=== PATIENT | female | born 1980 | race Caucasian/White ===

== ENCOUNTER 2024-01-25 21:58 | Emergency (ER) | payer OTHER, SELFPAY ==
[2024-01-25 21:59] VITALS: BP 145/87; PULSE 101; RESP 16; TEMP 36.6; O2SAT 99; BMI 26.4
--- NOTE | 2024-01-25 22:35 | EX.ED.DYSGE1 ---
HPI History of Present Illness Chief Complaint: Rash Informant: patient and spouse/S.O. Narrative Narrative: Patient is a 43-year-old female with past medical history of anxiety and depression. She states she is on Wellbutrin and Lexapro secondary to this and was started on Lamictal in the last 10 to 14 days. She reports today she was working in the basement vacuuming and could have been exposed to dust or mold. She states that she then noticed a full-body rash and states she had a low-grade temperature of 100 which she took 2 ibuprofen for this morning. She states her slight cough associated with this but otherwise denies congestion sore throat nausea vomiting or difficulty breathing. She states she is unsure if this is an allergic reaction or potential infection and secondary to his comes in for evaluation. [facility] Medical History [place] Allergy/AdvReac Type Severity Reaction Status Date / Time No Known Allergies Allergy Verified 01/25/24 22:00 Social History Smoking Status: Former smoker ROS ROS ED Constitutional Constitutional ED: Denies chills or fever(s) Eyes Eyes: Denies blurry vision or change in vision ENT ENT ED: Denies rhinorrhea or sore throat Cardiovascular Cardiovascular: Denies chest pain Respiratory/Chest Respiratory/Chest: Reports cough; Denies dyspnea Gastrointestinal Gastrointestinal: Denies abdominal pain, diarrhea, nausea or vomiting Genitourinary Genitourinary ED: Denies dysuria Musculoskeletal Musculoskeletal: Denies myalgias Integumentary Reports rash Neurologic Neurologic: Denies headache(s) Psychiatric Psychiatric: Reports anxiety and depression Hematologic/Lymphatic Hematologic/Lymphatic: Denies easy bleeding or easy bruising EXAM Physical Exam Const Vital Signs: 01/25/24 21:59 Temperature 97.8 F Temperature Source Temporal Pulse Rate 101 H Respiratory Rate 16 Blood Pressure 145/87 H Blood Pressure Mean 106 Pulse Ox 99 Oxygen Delivery Method Room Air Positive well nourished and well developed General Appearance ED: well developed HEENT Reports moist mucous membranes HEENT Narrative: No tongue or lip swelling no oral lesions no airway edema or compromise There is mild cobblestoning noted in the posterior pharynx without secondary findings to suggest infection Eyes PERRL and EOMs intact bilaterally General Eye ED: Negative for scleral icterus Neck supple Neck Narrative: No nuchal rigidity or meningeal signs noted Resp normal respiratory effort and clear to auscultation bilaterally Resp Narrative: No nasal flaring retractions tachypnea or accessory muscle use Cardio regular rate and regular rhythm GI normal to inspection, nondistended, normoactive bowel sounds, non-tender, non-distended and no masses Auscultation: normoactive bowel sounds Palpation: soft Extremity normal to inspection Neuro oriented x3, CN's II-XII intact bilaterally and no sensory deficits noted Sensorium / Orientation: alert Motor Exam: strength 5/5 throughout Psych mental status grossly normal Skin Skin Narrative: Patient has a erythematous blanchable lacy rash that is systemic in nature and extends from the dorsum of her feet onto her face. There is no involvement of the palms or soles. No vesicular or pustule lesions noted. No sloughing of the skin tissue present MDM MDM MDM Narrative Medical decision making narrative: Patient arrived to the ER with stable vitals and in no acute respiratory distress. She reported a whole body rash that began today after vacuuming. There is potential for acute allergic reaction secondary to exposure but there is also concern this could be infectious in nature as she has had mild cough and there is mild perioral sparing which could suggest strep pharyngitis. Also she has been on Lamictal for approximately 2 weeks and could be having adverse reaction to the medication. Secondary to his elected perform a strep swab and chest x-ray. Chest x-ray revealed no acute lung pathology and strep swab was negative. Therefore based on reported low-grade temperature at home and systemic rash this is most likely secondary to the Lamictal. At this time there is no sloughing of her skin she does not have tongue or lip swelling or oral lesions and there is no physical exam findings to suggest Stephens-Lars syndrome. Therefore there is no need for further workup or admission/transfer. As the patient is only been on the medication for a short time there is no harm in stopping at this juncture. Patient and spouse were informed of this they do agree with the plan of care but at this time as she is in no respiratory distress or having signs of systemic infection she is otherwise safe for discharge History & Record Review Discussion w/independent historian: Patient and Significant other Radiography Diagnostic Testing: Clinical Impression(s) from Imaging Studies Chest X-Ray 01/25/24 22:39 IMPRESSION: No radiographic evidence of acute cardiopulmonary disease. Electronically Signed: Vance Segura MD at 23:07 EDT , Chest x-ray as interpreted by the emergency medicine physician reveals no acute infiltrate pneumothorax or pleural effusion Discharge Plan Triage Chief Complaint: Rash ED Provider: Asher Donovan Dx/Rx/DC Orders Clinical Impression: Adverse drug reaction, Anxiety and depression Instructions: ED ADVERSE DRUG REACTION Allergic Activity Restrictions/Additional Instructions: Please stop your Lamictal as your history and exam today indicate this is most likely the cause of your rash. Inform your physician that you have stopped the medication secondary to the adverse reaction. If you have worsening of symptoms or any further concerns please return to the ER for repeat evaluation Print Language: Swedish Disposition Disposition: Home, Self Care
--- NOTE | 2024-01-25 22:39 | RAD_ITS ---
INDICATION: cough EXAMINATION/TECHNIQUE: X-RAY - XR Chest 2 Views COMPARISON: None. FINDINGS: LINES/DEVICES: None. LUNGS: No consolidation, edema or effusion. No pneumothorax. MEDIASTINUM AND CARDIOVASCULAR STRUCTURES: Cardiac silhouette not enlarged. BONES AND SOFT TISSUES: Unremarkable. RAD/Chest PA and Lateral IMPRESSION: No radiographic evidence of acute cardiopulmonary disease. Electronically Signed: Vance Segura MD at 23:07 EDT ,
[2024-01-25 23:46] VITALS: BP 106/76; PULSE 71; RESP 18; TEMP 37.3; O2SAT 100
== END 2024-01-25 23:47 | disposition home or self-care (01) ==
PROVIDERS: Emergency Provider Emergency Medicine; Visit Provider Emergency Medicine
DX: R21 Rash and other nonspecific skin eruption (principal); T42.6X5A Adverse effect of other antiepileptic and sedative-hypnotic drugs, initial encounter; F41.9 Anxiety disorder, unspecified; Z87.891 Personal history of nicotine dependence; F32.A Depression, unspecified
CPT/HCPCS: 71046; 87651; 99282